=== PATIENT | female | born 1990 | race Caucasian/White ===

== ENCOUNTER 2017-10-21 10:08 | Emergency (ER) | payer SELFPAY ==
[~2017-10-21] VITALS: Ht 177.8 cm; Wt 70.0 kg
[2017-10-21 10:09] VITALS: BP 129/62; PULSE 89; RESP 14; TEMP 97.9; O2SAT 99
[2017-10-21] MEDS ORDERED: ACETAMINOPHEN/HYDROcodone 325 MG/5 MG TAB PO ONE (11:00)
--- NOTE | 2017-10-21 11:46 | RADRPT ---
EXAM DATE/TIME: 10/21/2017 11:22 [place] COMPARISON: No previous studies available for comparison. INDICATIONS : Right hand pain. Patient punched a wall. MEDICAL HISTORY : None. SURGICAL HISTORY : None. ENCOUNTER: Initial ACUITY: 1 day PAIN SCORE: 9/10 LOCATION: Right hand. FINDINGS: There is a fracture seen at the distal carpal row best seen on the lateral view. This is thought to b e a fracture of the hamate. The remaining bones appear intact. CONCLUSION: Fracture of the hamate. Joseph Macias MD on October 21, 2017 at 11:44 Board Certified Radiologist. This report was verified electronically.
[2017-10-21] MEDS ORDERED: NORC5TAB PO (11:57)
--- NOTE | 2017-10-21 11:57 | PD ---
HPI Chief Complaint: Injury Time Seen by Provider: 10:30 Travel History International Travel<30 days: No Contact w/Intl Traveler<30days: No Traveled to known affect area: No History of Present Illness HPI Patient is a 27-year-old female who comes in complaining of right hand pain for the past 3 days. She says that she punched the wall out of anger. She denies any other injuries. She says she tried taking [id number] pain medicine without relief. Movement makes the pain worse. Severity is mild to moderate. PFSH Past Medical History Hx Anticoagulant Therapy: No Cardiovascular Problems: No Chemotherapy: No Cerebrovascular Accident: No Diabetes: No Respiratory: No ?: Not LMP: Last month Past Surgical History Hysterectomy: No Social History Alcohol Use: Yes (occ) Tobacco Use: No Substance Use: No Allergies-Medications (Allergen,Severity, Reaction): Coded Allergies: No Known Allergies (Unverified , 10/21/17) Review of Systems General / Constitutional: No: Fever, Chills HENT: No: Headaches, Lightheadedness Cardiovascular: No: Chest Pain or Discomfort Respiratory: No: Shortness of Breath Gastrointestinal: No: Nausea, Vomiting Musculoskeletal: Positive: Edema, Pain Skin: No Rash, No Lesions Neurologic: No: Weakness, Dizziness Physical Exam Narrative GENERAL: Awake and alert, in no acute distress. SKIN: Focused skin assessment warm/dry. Ecchymosis over the right hand. HEAD: Atraumatic. Normocephalic. EYES: Pupils equal and round. No scleral icterus. ENT: Mucous membranes pink and moist. CARDIOVASCULAR: Regular rate and rhythm. No murmur appreciated. RESPIRATORY: No accessory muscle use. Clear to auscultation. Breath sounds equal bilaterally. MUSCULOSKELETAL: Edema of the right hand. Pain with palpation to the medial side of the right hand. Sensation and capillary refill intact. NEUROLOGICAL: Awake and alert. No obvious cranial nerve deficits. Motor grossly within normal limits. Normal speech. Data Data Last Documented VS Vital Signs Date Time Temp Pulse Resp B/P (MAP) Pulse Ox O2 Delivery O2 Flow Rate FiO2 10/21/17 10:09 97.9 89 14 129/62 (84) 99 Orders Orders Hand, Complete ([id number]) (10/21/17 ) Acetamin-Hydrocod 325-5 Mg ([place] 5-325 (10/21/17 11:00) Splint Or Brace Apply/Monitor (10/21/17 11:49) [facility] Medical Decision Making Medical Screen Exam Complete: Yes Emergency Medical Condition: Yes Differential Diagnosis Boxer's fracture versus hamate fracture versus sprain Narrative Course Patient is a 27-year-old female who comes in complaining of pain to her right hand after she punched the wall. Exam shows ecchymosis as well as swelling to the right hand. X-ray performed shows a hamate fracture. Patient given pain medicine. Placed in a volar splint. Advised follow-up with hand surgery. Given a prescription for pain medicine. Advised return to the ED as needed for any worsening symptoms. Diagnosis Primary Impression: Fracture, hamate Qualified Codes: S62.144A - Nondisplaced fracture of body of hamate [unciform ] bone, right wrist, initial encounter for closed fracture Referrals: Lucy Anderson MD call for appointment Patient Instructions: General Instructions, Hand Fracture (ED) Additional Instructions: Wear your splint until you follow-up with the hand surgeon. Take pain medicine as needed. Return to the ED as needed for any worsening symptoms. Scripts Hydrocodone-Acetaminophen ([place]) 5 Mg-325 Mg Tab 1 TAB PO Q6H Y for PAIN, #12 TAB 0 Refills Prov: Emiliana Elam MD 10/21/17 Disposition: 01 DISCHARGE HOME Condition: Stable Emiliana Elam MD Oct 21, 2017 11:57
== END 2017-10-21 12:23 | disposition home or self-care (01) ==
LOC: NEPD 10:08
DX: S62.144A Nondisplaced fracture of body of hamate [unciform] bone, right wrist, initial encounter for closed fracture (principal); W22.09XA Striking against other stationary object, initial encounter
CPT/HCPCS: 29125; 73130